=== PATIENT | female | born 1980 | race Caucasian/White ===

== ENCOUNTER 2018-09-20 17:59 | Emergency (ER) | payer BC, SELFPAY ==
[2018-09-20 18:03] VITALS: BP 116/65; PULSE 60; RESP 16; TEMP 37; O2SAT 60
--- NOTE | 2018-09-20 19:44 | NUR.NOTE ---
Nursing Note: patient left without being seen
[2018-09-20] MEDS: Doxycycline Hyclate 100 MG CAP 200 MG PO (20:25)
--- NOTE | 2018-09-20 23:38 | ED.GENADUL_ITS ---
Discharge Plan Disposition Patient Disposition: HOME Condition: Good Discharge Details Chief Complaint: GenMedical Clinical Impression: Tick bite Primary Care Provider: America Cardenas V ED Provider: Henrique Cerna Home Meds and New Rx's Prescriptions: Continued albuterol sulfate [ProAir HFA] 8.5 GM HFA aerosol inhaler 2 puff Inhalation Q6H PRN RF: 0 Discharge Instructions Instructions: Tick Bite (ED) Additional Instructions: Return if you develop fever, chills, headache, vision change, confusion, joint swelling, chest pain, shortness of breath Discharge Data Discharge Date/Time-TO BE ENTERED AT DEPARTURE: 09/20/18 20:31 Discharge Physician: Henrique Cerna HPI Patient noted tick on back of neck, possibly present 2 to 3 days. She removed it just prior to visit. Denies fever, chills, lethargy, arthralgias, headache, confusion, vision change, numbness or weakness. General Date/Time Provider Initiated Documentation: 09/20/18 19:14 . Related Data Home Medications Medication Instructions Recorded Confirmed albuterol sulfate [ProAir HFA] 2 puff INHALATION Q6H PRN inhaler 07/15/15 09/20/18 Allergies Allergy/AdvReac Type Severity Reaction Status Date / Time acetaminophen AdvReac Severe Agitation Unverified 09/20/18 18:03 ibuprofen AdvReac Severe Wheezing Unverified 09/20/18 18:03 acetominophen AdvReac Severe affects Uncoded 09/20/18 18:03 breathing, heart rhythm and causes loc General Stated Complaint: GenMedical AMADOU: 5 Review of Systems Constitutional Denies chills, Denies fatigue, Denies fever(s) and Denies lethargy Eyes Denies loss of vision ENT Denies nasal congestion and Denies sore throat Cardiovascular Denies chest pain and Denies dyspnea Respiratory Denies cough and Denies dyspnea Gastrointestinal Denies abdominal pain, Denies nausea and Denies vomiting Musculoskeletal Denies back pain, Denies muscle weakness and Denies numbness Integumentary/Breasts Denies rash Neurologic Denies focal weakness, Denies loss of vision and Denies numbness Endocrine Denies fatigue Hematologic/Lymphatic Denies easy bruising [facility] Medical History Eczema (Chronic) Asthma (Chronic) Cardiac arrhythmia (Acute) Mitral valve disorder (Acute) Encounter for insertion of ParaGard IUD (Acute) Social History Smoking/Tobacco Use Status: Never Alcohol Intake: never Drug use: Never Substance use type: does not use Household members: spouse and other Details: H-[place] x19yrs Number of Children: 0 Education Level: master's degree current occupation: Teacher - second grade. Sexually active: Yes Do you feel safe at home: Yes Do you feel safe in your relationship?: Yes Female Reproductive History Menstrual control method: none and copper IUCD ([employer]ag[employer] Lot # [id number] Exp 08/07) History History 0 Para Hx # Term Pregnancies Multiple births Hx # Pregnancies Ectopic pregnancies AB induced Hx Number of Living Children AB spontaneous Exam Const General: cooperative and comfortable HENMT Mouth: moist mucous membranes Eyes Conjunctivae: conjunctivae normal Sclera: sclerae normal Neck Neck: trachea midline Resp Effort & Inspection: normal respiratory effort and able to speak in complete sentences Auscultation: clear to auscultation bilaterally Cardio Rate: regular rate Rhythm: regular rhythm Skin General skin exam: no rashes or lesions noted Other: Nape of neck is with 1 cm excoriation. No erythema Neuro General: alert, awake, tone normal and moves all extremities Psych Appearance: grossly normal Mental Status: mental status grossly normal Course Vital Signs Temperature 37.0 C 09/20/18 18:03 Pulse 60 09/20/18 18:03 Respiratory Rate 16 09/20/18 18:03 Blood Pressure 116/65 09/20/18 18:03 Pulse Oximetry 60 L 09/20/18 18:03 Temperature 37.0 C 09/20/18 18:03 Temperature Source Temporal Artery Scan 09/20/18 18:03 Pulse 60 09/20/18 18:03 Respiratory Rate 16 09/20/18 18:03 Respiratory Effort 09/20/18 18:03 Blood Pressure 116/65 09/20/18 18:03 Blood Pressure Position Sitting 09/20/18 18:03 Pulse Oximetry 60 L 09/20/18 18:03 Oxygen Delivery Method Room Air 09/20/18 18:03 Oxygen Flow Rate 0 09/20/18 18:03
== END 2018-09-20 20:31 | disposition home or self-care (01) ==
PROVIDERS: Emergency Provider Physician Assistant Medical; PCP Family Medicine
DX: S10.86XA Insect bite of other specified part of neck, initial encounter (principal); W57.XXXA Bitten or stung by nonvenomous insect and other nonvenomous arthropods, initial encounter
CPT/HCPCS: 99283

== ENCOUNTER 2019-06-16 16:34 | Outpatient (REF) | payer BC, SELFPAY ==
[2019-06-18 11:03] LABS: Lyme Ab w Rflx to Lyme Confirm Negative (Negative)
== END 2019-06-16 16:54 ==
LOC: NCHCN 16:34
PROVIDERS: PCP Family Medicine; Visit Provider Nurse Practitioner Family
DX: W57.XXXA Bitten or stung by nonvenomous insect and other nonvenomous arthropods, initial encounter (principal); T14.8XXA Other injury of unspecified body region, initial encounter
CPT/HCPCS: 86618

== ENCOUNTER 2021-03-15 20:52 | Outpatient (REF) | payer BC, SELFPAY | END 2021-03-15 20:53 | disposition home or self-care (01) | LOC: NCHCN 20:52 | PROVIDERS: PCP Family Medicine; Visit Provider Physician Assistant Medical | DX: N39.0 Urinary tract infection, site not specified (principal) | CPT/HCPCS: 87077; 87086; 87186 ==

== ENCOUNTER 2021-08-16 13:08 | Outpatient (REF) | payer BC, SELFPAY | END 2021-08-16 13:09 | disposition home or self-care (01) | LOC: LBN 13:08 | PROVIDERS: PCP Family Medicine; Visit Provider Physician Assistant Medical | DX: N39.0 Urinary tract infection, site not specified (principal) | CPT/HCPCS: 87077; 87086; 87186 ==

== ENCOUNTER 2021-12-01 18:29 | Outpatient (REF) | payer BC, SELFPAY | END 2021-12-01 18:30 | disposition home or self-care (01) | LOC: LBN 18:29 | PROVIDERS: PCP Family Medicine; Visit Provider Physician Assistant Medical | DX: R30.0 Dysuria (principal) | CPT/HCPCS: 87077; 87086; 87186 ==

== ENCOUNTER 2022-06-06 16:41 | Outpatient (REF) | payer BC, SELFPAY ==
--- NOTE | 2022-06-06 15:30 | PAPFT_PTH ---
PATIENT: Chrissy Longoria LOC: [facility]#:[id number] AGE/SX: 41/F ROOM: RE06/06/[address]: Laurie Gaspar : 1980 BED: DIS: 06/06/2022 SPEC #: [id number] RECD: 06/07/22 12:56 STATUS: ALLYN REArleen #: [id number] BRIAN: 06/06/22 15:[address]: Laurie Gaspar DEPT: [facility] Cytology RECD BY: Zandra Olivarez ENTERED: 06/07/22 12:56 SP TYPE: PAPFT OTHR DR: America Cardenas V Tissues: 1 - CX/ENDOCX FOR PAP SMEARS Procedures: PAP THIN PREP/UVM Screening HPV DNA PROBE Comments: [id number]
== END 2022-06-06 16:42 | disposition home or self-care (01) ==
LOC: NCHCN 16:41
PROVIDERS: PCP Family Medicine; Visit Provider Nurse Practitioner Family
DX: Z12.4 Encounter for screening for malignant neoplasm of cervix (principal); Z11.51 Encounter for screening for human papillomavirus (HPV); Z01.419 Encounter for gynecological examination (general) (routine) without abnormal findings
CPT/HCPCS: 88142; 87624

== ENCOUNTER 2022-12-07 13:53 | Outpatient (REF) | payer BC, SELFPAY ==
[2022-12-07 17:01] LABS: Anion Gap 7.3 mmol/L (3-11); BUN 13 mg/dL (7-18); CO2 28.7 mmol/L (21.0-32.0); CREATININE 0.7 mg/dL (0.55-1.02); Calcium 9.1 mg/dL (8.5-10.1); Chloride 103 mmol/L (98-107); Estimated GFR 110.67 (mL/min/1.73m2); Glucose 93 mg/dL (74-106); Potassium 4.1 mmol/L (3.5-5.1); Sodium 139 mmol/L (136-145)
== END 2022-12-07 13:54 | disposition home or self-care (01) ==
LOC: NCHCN 13:53
PROVIDERS: PCP Family Medicine; Visit Provider Family Medicine
DX: I42.9 Cardiomyopathy, unspecified (principal)
CPT/HCPCS: 80048

== ENCOUNTER 2023-10-02 12:11 | Outpatient (REF) | payer BC, SELFPAY ==
[2023-10-02 15:09] LABS: Calculated LDL 91 mg/dL (<100); Cholesterol 177 mg/dL (<200); HDL Cholesterol 80 mg/dL (40-60); Triglyceride 34 mg/dL (<150)
[2023-10-02 15:16] LABS: Hemoglobin A1C 5.2 % (<5.7)
[2023-10-02 15:50] LABS: NT-proBNP 649 pg/mL (<300)
== END 2023-10-02 12:12 | disposition home or self-care (01) ==
LOC: NCHCN 12:11
PROVIDERS: PCP Family Medicine; Visit Provider Nurse Practitioner Family
DX: I42.9 Cardiomyopathy, unspecified (principal); Z13.6 Encounter for screening for cardiovascular disorders; Z13.1 Encounter for screening for diabetes mellitus
CPT/HCPCS: 80061; 83036; 83880

== ENCOUNTER → 2023-10-10 00:30 | Outpatient (CLI) | payer BC, SELFPAY ==
--- NOTE | 2023-10-10 | DI.MAMMO_ITS ---
Exam(s) MAMMO SCREENING EXAM: MAMMO SCREENING CLINICAL HISTORY: SCREENING, Z12.31, BASELINE TECHNIQUE: Bilateral full field digital CC and MLO mammographic images were obtained with 3D tomosyn thesis and utilizing computer aided detection (CAD). COMPARISON: This is a baseline examination. FINDINGS: Masses/Architectural Distortion: None seen. Microcalcifications: No suspicious pleomorphic-type are seen. Skin Thickening/Nipple Retraction: None. IMPRESSION: 1. No evidence for malignancy is seen at this time. 2. Unless there is more urgent need, screening mammography is recommended, as per [place] [employer] guidelines. BI-RADS Category 1 - Negative Breast Density - Category C - Heterogeneously dense Breast density category C or D implies that the patient has dense breast tissue. Dense breast tissue is very common and is not abnormal but dense breast tissue can make it harder to find cancer on a ma mmogram. Also, dense breast tissue may increase their breast cancer risk. This information about the result of the mammogram report was provided to the patient to raise their awareness. Use this report when you speak with the patient about their risks for breast cancer, which includes their family hist ory. At that time, you may recommend for more screening tests (Ultrasound or MRI) as they might be us eful based on their risk. A negative radiographic report should not delay biopsy if a dominant or clinically suspicious mass is present. Up to ten percent of cancers are not identified on mammography. A negative report may reinforce clinical impression. Adenosis and dense breasts may obscure an underlying neoplasm. False positive reports average 6 to 10%. Patient will receive a letter notifying them of these results.
== END ==
PROVIDERS: PCP Family Medicine; Visit Provider Nurse Practitioner Family
DX: Z12.31 Encounter for screening mammogram for malignant neoplasm of breast (principal)
CPT/HCPCS: 77063; 77067

== ENCOUNTER 2023-11-11 16:52 | Outpatient (REF) | payer BC, SELFPAY ==
[2023-11-11 19:17] LABS: HCT 42.9 % (36.0-46.0); HGB 14.1 g/dL (11.2-15.7); MCH 31.1 pg (27.0-33.0); MCHC 32.9 % (32.0-36.0); MCV 95 fL (80-95); MPV 10.7 fL (8.0-11.0); Platelet Count 208 10^3/uL (130-400); RBC 4.53 10^6/uL (3.93-5.22); RDW 12.6 % (11.7-14.6); RDW-SD 44.4 fL; WBC 7.27 10^3/uL (4.4-10.8)
[2023-11-11 19:21] LABS: ESR 1 mm/hr (0-20)
[2023-11-11 19:28] LABS: ALT 36 U/L (14-59); AST 27 U/L (15-37); Albumin 3.9 g/dL (3.4-5.0); Alkaline Phosphatase 85 U/L (46-116); Anion Gap 13.7 mmol/L (3-11); BUN 33 mg/dL (7-18); Bilirubin, Total 0.39 mg/dL (0.2-1.0); CO2 21.3 mmol/L (21.0-32.0); CREATININE 0.9 mg/dL (0.55-1.02); Chloride 108 mmol/L (98-107); Estimated GFR 81.86 (mL/min/1.73m2); Glucose 87 mg/dL (74-106); Potassium 4.7 mmol/L (3.5-5.1); Sodium 143 mmol/L (136-145); Total Protein 6.7 g/dL (6.4-8.2)
[2023-11-11 19:32] LABS: C-Reactive Protein < 0.50 mg/dL (<or=0.5)
[2023-11-12 17:42] LABS: Rheumatoid Factor <8.6 IU/mL (<12.0)
[2023-11-13 10:46] LABS: Lyme Ab w Rflx to Lyme Confirm Negative (Negative)
[2023-11-13 14:51] LABS: ANA Interpretation Negative (Negative)
[2023-11-15 17:28] LABS: Anaplasma phagocytophilum Negative (Negative); B. miyamotoi PCR Negative (Negative); Babesia divergens/MO-1 Negative (Negative); Babesia duncani Negative (Negative); Babesia microti Negative (Negative); Ehrlichia chaffeensis Negative (Negative); Ehrlichia ewingii/canis Negative (Negative); Ehrlichia muris eauclairensis Negative (Negative)
== END 2023-11-11 16:53 | disposition home or self-care (01) ==
LOC: NCHCN 16:52
PROVIDERS: PCP Family Medicine; Visit Provider Nurse Practitioner Family
DX: M25.50 Pain in unspecified joint (principal); M25.69 Stiffness of other specified joint, not elsewhere classified; T14.8XXA Other injury of unspecified body region, initial encounter; W57.XXXA Bitten or stung by nonvenomous insect and other nonvenomous arthropods, initial encounter
CPT/HCPCS: 80053; 85027; 85652; 87798; 86038; 86140; 86431; 86618

== ENCOUNTER 2023-11-26 21:13 | Outpatient (REF) | payer BC, SELFPAY ==
[2023-11-26 21:24] LABS: Abs Immature Grans 0.02 10^3/uL (0.0-0.06); Absolute Basophil Count 0.06 10^3/uL (0.0-0.2); Absolute Eosinophil Count 0.13 10^3/uL (0.0-0.7); Absolute Lymphocyte Count 1.19 10^3/uL (1.2-3.4); Absolute Monocyte Count 0.81 10^3/uL (0.1-0.8); Absolute Neutrophil Count 5.91 10^3/uL (1.2-6.7); Basophils % 0.7 %; Eosinophils % 1.6 %; HCT 43.7 % (36.0-46.0); HGB 14.6 g/dL (11.2-15.7); Immature Grans % 0.2 %; Lymphocytes % 14.7 %; MCH 31.4 pg (27.0-33.0); MCHC 33.4 % (32.0-36.0); MCV 94 fL (80-95); MPV 10.2 fL (8.0-11.0); Neutrophils % 72.8 %; Platelet Count 185 10^3/uL (130-400); RBC 4.65 10^6/uL (3.93-5.22); RDW 12.3 % (11.7-14.6); WBC 8.12 10^3/uL (4.4-10.8)
[2023-11-28 07:48] LABS: Lyme Ab w Rflx to Lyme Confirm Negative (Negative)
[2023-11-30 13:47] LABS: Anaplasma phagocytophilum Negative (Negative); B. miyamotoi PCR Negative (Negative); Babesia divergens/MO-1 Negative (Negative); Babesia duncani Negative (Negative); Babesia microti Negative (Negative); Ehrlichia chaffeensis Negative (Negative); Ehrlichia ewingii/canis Negative (Negative); Ehrlichia muris eauclairensis Negative (Negative)
== END 2023-11-26 21:14 | disposition home or self-care (01) ==
LOC: LBN 21:13
PROVIDERS: PCP Family Medicine; Visit Provider Nurse Practitioner Family
DX: W57.XXXA Bitten or stung by nonvenomous insect and other nonvenomous arthropods, initial encounter (principal); L08.9 Local infection of the skin and subcutaneous tissue, unspecified; S70.361A Insect bite (nonvenomous), right thigh, initial encounter; X58.XXXA Exposure to other specified factors, initial encounter
CPT/HCPCS: 87798; 85025; 86618

== ENCOUNTER 2023-11-28 10:53 | Outpatient (REF) | payer BC, SELFPAY ==
[2023-11-28 16:46] LABS: BUN 15 mg/dL (7-18); CREATININE 0.8 mg/dL (0.55-1.02); Calcium 9.3 mg/dL (8.5-10.1); Chloride 103 mmol/L (98-107); Glucose 89 mg/dL (74-106); Potassium 4.1 mmol/L (3.5-5.1); Sodium 138 mmol/L (136-145)
[2023-11-28 18:26] LABS: COMMENT (LAB VIEW ONLY) 14.55 mg/dL; Microalb ug/mg Crea 44.7 ug/mg Cr
[2023-11-29 09:16] LABS: HIV-1/2 Ag & Ab Screen Negative (Negative)
[2023-11-29 10:09] LABS: Hepatitis C Ab w Rflx HCV PCR Negative (Negative)
[2023-11-29 11:52] LABS: Syphilis Serology (RPR) Negative (Negative)
[2023-11-29 13:33] LABS: Chlamydia Result Negative (Negative); GC Result Negative (Negative)
== END 2023-11-28 10:54 | disposition home or self-care (01) ==
LOC: NCHCN 10:53
PROVIDERS: PCP Family Medicine; Visit Provider Nurse Practitioner Family
DX: R79.89 Other specified abnormal findings of blood chemistry (principal)
CPT/HCPCS: 80048; 86803; 87389; 87491; 87591; 82043; 82570; 86592

== ENCOUNTER 2023-12-06 17:08 | Outpatient (REF) | payer BC, SELFPAY | END 2023-12-06 17:09 | disposition home or self-care (01) | LOC: LBN 17:08 | PROVIDERS: PCP Family Medicine; Visit Provider Physician Assistant Medical | DX: N89.8 Other specified noninflammatory disorders of vagina (principal) | CPT/HCPCS: 87480; 87510; 87660 ==

== ENCOUNTER 2023-12-19 09:50 | Outpatient (REF) | payer BC, SELFPAY ==
[2023-12-20 12:33] LABS: HSV 1 DNA Result Negative (Negative); HSV 2 DNA Result Negative (Negative)
== END 2023-12-19 09:51 | disposition home or self-care (01) ==
LOC: LBN 09:50
PROVIDERS: PCP Nurse Practitioner Family; Visit Provider Obstetrics & Gynecology Gynecology
DX: N90.89 Other specified noninflammatory disorders of vulva and perineum (principal)
CPT/HCPCS: 87529

== ENCOUNTER 2024-02-07 23:26 | Outpatient (REF) | payer BC, SELFPAY ==
[2024-02-07 23:45] LABS: Bacteria Rare HPF (Negative); C & S Indicated? C&S Done As Ordered; Casts Negative LPF (Negative); Crystals Negative HPF (Negative); Epithelial Cells Few HPF (Negative); Mucus Negative (Negative); RBC Negative HPF (0-2)
== END 2024-02-07 23:27 | disposition home or self-care (01) ==
LOC: LBN 23:26
PROVIDERS: PCP Nurse Practitioner Family; Visit Provider Physician Assistant Medical
DX: R30.0 Dysuria (principal); R82.89 Other abnormal findings on cytological and histological examination of urine
CPT/HCPCS: 81015; 87086

== ENCOUNTER 2024-09-23 19:15 | Outpatient (REF) | payer BC, SELFPAY | END 2024-09-23 19:16 | disposition home or self-care (01) | LOC: LBN 19:15 | PROVIDERS: PCP Nurse Practitioner Family; Visit Provider Physician Assistant Medical | DX: J02.9 Acute pharyngitis, unspecified (principal) | CPT/HCPCS: 87070 ==